=== PATIENT | male | born 1965 | race African-American/Black ===

== ENCOUNTER 2023-07-01 15:31 | Emergency (ER) | payer OTHER ==
[~2023-07-01] VITALS: Ht 182.9 cm; Wt 72.0 kg
[2023-07-01 15:45] VITALS: O2SAT 100
[2023-07-01 16:07] LABS: CLARITY URINE CLOUDY (CLEAR); COLOR URINE YELLOW (YELLOW); GLUCOSE URINE 1+ (NEGATIVE); KETONES URINE NEGATIVE (NEGATIVE); LEUKOCYTE ESTERASE URINE 2+ (NEGATIVE); NITRITE URINE NEGATIVE (NEGATIVE); OCCULT BLOOD URINE 1+ (NEGATIVE); PH URINE 5.5 (4.5-8.0); PROTEIN URINE 1+ (NEGATIVE); SPECIFIC GRAVITY URINE 1.016 (1.005-1.030); UROBILINOGEN URINE 0.2 E.U./dL (0.2-1.0)
[2023-07-01 16:27] LABS: BACTERIA URINE 1+; RBC URINE 0-2 /hpf (0-2); SQUAMOUS EPITHELIAL CELL URINE 1+ /lpf (RARE/1+)
[2023-07-01 16:56] LABS: EOSINOPHILS % 2.1 % (0.0-5.0); HEMATOCRIT. 23.1 % (42.0-52.0); HEMOGLOBIN. 7.4 g/dL (14.0-18.0); LYMPHOCYTES % 23.1 % (20.0-50.0); MEAN CORPUSCULAR HEMOGLOBIN 29.5 pg (28.0-32.0); MEAN CORPUSCULAR HGB CONC 32.2 g/dL (31.0-37.0); MEAN CORPUSCULAR VOLUME 91.7 fL (80.0-94.0); MEAN PLATELET VOLUME 8.5 fl (7.4-10.4); MONOCYTES % 9.6 % (2.0-8.0); NEUTROPHILS % 64.2 % (40.0-76.0); PLATELET 467 x1000/uL (130-400); RED BLOOD CELL COUNT 2.52 mill/uL (4.7-6.1); RED CELL DISTRIBUTION WIDTH 16.6 % (11.6-14.6); WHITE BLOOD COUNT 9.7 x1000/uL (4.5-11.0)
[2023-07-01 17:11] LABS: ALANINE AMINOTRANSFERASE 40 IU/L (10-49); ALBUMIN 3.7 g/dL (3.2-4.8); ASPARTATE AMINOTRANSFERASE 30 IU/L (<34); BILIRUBIN TOTAL < 0.2 mg/dL (0.1-1.0); CALCIUM 8.9 mg/dL (8.7-10.4); CARBON DIOXIDE 23 mEq/L (21-32); CHLORIDE 109 mEq/L (98-107); CREATININE 1.1 mg/dL (0.6-1.3); POTASSIUM 4.4 mEq/L (3.5-5.1); PROTEIN TOTAL 8.2 g/dL (6.0-8.3); SODIUM 139 mEq/L (136-145); UREA NITROGEN BLOOD 47 mg/dL (9-23)
[2023-07-01 17:16] LABS: GLUCOSE 33 mg/dL (70-105)
[2023-07-01] MEDS: PIPERACILLIN/TAZO 3.375G/50ML 50 ML IV SCH (23:21)
[2023-07-01 23:28] VITALS: BP 157/83; PULSE 78; RESP 18; TEMP 98.7
== END 2023-07-01 23:50 | disposition short-term general hospital (02) ==
LOC: ER 15:31
DX: M86.172 Other acute osteomyelitis, left ankle and foot (principal); E11.649 Type 2 diabetes mellitus with hypoglycemia without coma; Z98.890 Other specified postprocedural states; Z86.73 Personal history of transient ischemic attack (TIA), and cerebral infarction without residual deficits
CPT/HCPCS: 80053; 81003; 82962; 83605; 85025; 87040; 36415; 73620; 99285; Z7610